=== PATIENT | male | born 1995 | race Caucasian/White ===

== ENCOUNTER 2019-11-03 22:25 | Emergency (ER) | payer OTHER ==
[~2019-11-03] VITALS: Ht 175.3 cm; Wt 89.5 kg
[2019-11-03] MEDS ORDERED: traMADol 50 MG TAB PO ONE (23:45)
[2019-11-03] MEDS ORDERED: IBUPROFEN 600MG TAB PO ONE (23:45)
[2019-11-03] MEDS ORDERED: TRAM50TA2 PO (23:57)
[2019-11-04 00:10] VITALS: BP 146/90
== END 2019-11-04 00:12 | disposition home or self-care (01) ==
LOC: M ED 22:25
DX: K01.1 Impacted teeth (principal)

== ENCOUNTER → 2020-09-06 | Outpatient (CLI) | payer SELFPAY ==
[~2020-09-06] MED LIST: TRAM50TA2 PO
== END ==
LOC: M LABSMTC 09:20
PROVIDERS: ATTEND Pediatrics
DX: Z11.52 Encounter for screening for COVID-19 (principal)

== ENCOUNTER 2021-12-12 09:03 | Emergency (ER) | payer OTHER ==
[~2021-12-12] VITALS: Ht 175.3 cm; Wt 109.1 kg
[2021-12-12] MEDS ORDERED: LIDOCAINE 5% (LIDODERM) PATCH TD ONE (12:30)
[2021-12-12] MEDS ORDERED: KETOROLAC 30 MG/ML 1ML VIAL IM ONE (12:30)
[2021-12-12] MEDS ORDERED: CYCL5TAB PO (12:33)
[2021-12-12 13:35] VITALS: BP 13/75
[2021-12-12] MEDS ORDERED: **NOTE PATIENT COMMENT** MISC XX SCH (21:00)
== END 2021-12-12 14:35 | disposition home or self-care (01) ==
LOC: M ED 09:03
DX: S46.812A Strain of other muscles, fascia and tendons at shoulder and upper arm level, left arm, initial encounter (principal); Y92.9 Unspecified place or not applicable; Y93.89 Activity, other specified; Y99.0 Civilian activity done for income or pay
CPT/HCPCS: 73030; 96372; 99284; J1885

== ENCOUNTER 2022-11-22 14:27 | Emergency (ER) | payer OTHER ==
[~2022-11-22] VITALS: Ht 175.3 cm; Wt 109.1 kg
[~2022-11-22 14:27] MED LIST changes: +CYCL5TAB PO
[2022-11-22] MEDS ORDERED: ERGO500029 PO (14:40)
[2022-11-22] MEDS ORDERED: HYDR12.55 PO (14:40)
[2022-11-22] MEDS ORDERED: LISI20TA33 PO (14:40)
[2022-11-22] MEDS ORDERED: NS 2,000 ML in IV 1 EA IV ONE (14:50)
[2022-11-22 15:11] LABS: BASO # 0.1 10^3/uL (0.0-0.2); BASO % 0.6 % (0.0-1.0); EOS # 0.1 10^3/uL (0.0-0.5); HEMATOCRIT 44.4 % (42.0-52.0); HEMOGLOBIN 15.9 g/dl (13.5-17.5); LYMPH # 1.6 10^3/uL (1.5-5.0); LYMPH % 16.4 % (24.0-44.0); MEAN CORPUSCULAR HEMOGLOBIN 30.5 pg (27.0-33.0); MEAN CORPUSCULAR HGB CONC 35.8 g/dl (32.0-36.5); MEAN CORPUSCULAR VOLUME 85.2 fl (80.0-96.0); MONO # 0.8 10^3/uL (0.0-0.8); NEUTROPHILS # 7.2 10^3/uL (1.5-8.5); NEUTROPHILS % 73.3 % (36.0-66.0); PLATELET COUNT, AUTOMATED 323 10^3/uL (150-450); RED BLOOD COUNT 5.21 10^6/uL (4.30-6.10); WHITE BLOOD COUNT 9.8 10^3/uL (4.0-10.0)
[2022-11-22 15:30] LABS: LIPASE 44 U/L (12-53)
[2022-11-22 15:32] LABS: ALKALINE PHOSPHATASE 34 U/L (46-116); ALT/SGPT 95 U/L (7.0-40); AST/SGOT 34 U/L (<34); BILIRUBIN,DIRECT 0.3 MG/DL (<0.4); BILIRUBIN,TOTAL 0.8 MG/DL (0.3-1.2); BLOOD UREA NITROGEN 12 MG/DL (9-23); CALCIUM LEVEL 8.9 MG/DL (8.5-10.1); CARBON DIOXIDE LEVEL 25 MMOL/L (20-31); CHLORIDE LEVEL 106 MMOL/L (98-107); CREATININE FOR GFR 1.28 MG/DL (0.70-1.30); GLOMERULAR FILTRATION RATE > 60.0 (>60); GLUCOSE, FASTING 117 MG/DL (60-100); POTASSIUM SERUM 3.6 MMOL/L (3.5-5.1); SODIUM LEVEL 139 MMOL/L (136-145); TOTAL PROTEIN 6.6 G/DL (5.7-8.2)
[2022-11-22 17:50] VITALS: BP 145/89; TEMP 97.9; O2SAT 100
== END 2022-11-22 18:01 | disposition home or self-care (01) ==
LOC: M ED 14:27
DX: T67.5XXA Heat exhaustion, unspecified, initial encounter (principal); E86.0 Dehydration; I10 Essential (primary) hypertension; Z79.811 Long term (current) use of aromatase inhibitors; Z79.899 Other long term (current) drug therapy